=== PATIENT | male | born 1995 | race Two or more races ===

== ENCOUNTER 2017-02-20 11:31 | Emergency (ER) | payer OTHER ==
[2017-02-20] MEDS: PENICILLIN V POTASSIUM 500 MG TAB PO (11:59)
[2017-02-20] MEDS: PERCOCET 5MG/325MG TAB PO (11:59)
== END 2017-02-20 12:28 | disposition home or self-care (01) ==
LOC: M ED 11:31
DX: K04.7 Periapical abscess without sinus (principal); Z98.818 Other dental procedure status; F17.210 Nicotine dependence, cigarettes, uncomplicated
CPT/HCPCS: 99282

== ENCOUNTER 2017-11-10 16:21 | Emergency (ER) | payer OTHER ==
[2017-11-10] MEDS: KETOROLAC TROMETHAMINE 10 MG TAB PO (18:35)
[2017-11-10] MEDS: diphenhydrAMINE 50 MG CAP PO (18:35)
[2017-11-10] MEDS: METOCLOPRAMIDE 10 MG TAB PO (18:35)
[2017-11-10 18:55] LABS: BASO % 0.3 % (0.0-1.0); EOS % 0.3 % (0.0-3.0); HEMATOCRIT 47.1 % (42.0-52.0); IMMATURE GRANULOCYTE % 0.3 % (0-3.0); LYMPH # 2.2 10^3/uL (1.5-6.5); LYMPH % 17.6 % (24.0-44.0); MEAN CORPUSCULAR HEMOGLOBIN 30.2 pg (27.0-33.0); MEAN CORPUSCULAR HGB CONC 36.1 g/dl (32.0-36.5); MEAN CORPUSCULAR VOLUME 83.8 fl (80.0-96.0); MONO # 0.7 10^3/uL (0.0-0.8); MONO % 5.3 % (0.0-5.0); NEUTROPHILS # 9.7 10^3/uL (1.8-7.7); NEUTROPHILS % 76.2 % (36.0-66.0); PLATELET COUNT, AUTOMATED 231 10^3/uL (150-450); RED BLOOD COUNT 5.62 10^6/uL (4.30-6.10); RED CELL DISTRIBUTION WIDTH 11.5 % (11.5-14.5); WHITE BLOOD COUNT 12.7 10^3/uL (4.0-10.0)
[2017-11-10 19:39] LABS: ANION GAP 8 MEQ/L (8-16); BLOOD UREA NITROGEN 19 MG/DL (7-18); CALCIUM LEVEL 9.6 MG/DL (8.5-10.1); CARBON DIOXIDE LEVEL 25 MEQ/L (21-32); CHLORIDE LEVEL 104 MEQ/L (98-107); CREATININE FOR GFR 1.02 MG/DL (0.70-1.30); GLOMERULAR FILTRATION RATE > 60.0 (>60); GLUCOSE, FASTING 89 MG/DL (70-100); MAGNESIUM LEVEL 2.1 MG/DL (1.8-2.4); POTASSIUM SERUM 4.5 MEQ/L (3.5-5.1); SODIUM LEVEL 137 MEQ/L (136-145); THYROID STIMULATING HORMONE 0.676 uIU/ML (0.358-3.740)
[2017-11-15 12:53] LABS: BEDSIDE GLUCOSE 93 MG/DL (70-105)
== END 2017-11-10 20:45 | disposition home or self-care (01) ==
LOC: M ED 16:21
DX: F41.0 Panic disorder [episodic paroxysmal anxiety] (principal); R51 Headache; R00.0 Tachycardia, unspecified; F17.200 Nicotine dependence, unspecified, uncomplicated
CPT/HCPCS: 70450

== ENCOUNTER 2018-05-01 19:31 | Emergency (ER) | payer OTHER ==
[~2018-05-01] VITALS: Ht 180.3 cm; Wt 90.9 kg
[~2018-05-01 19:31] MED LIST: IBUP-1114 PO; NAPR-50 PO; PENI500T OR; PERC5TAB12 PO; REGL10TA6 PO
[2018-05-01] MEDS ORDERED: OLOP0.1D (19:36)
[2018-05-01] MEDS ORDERED: FLUTISP (19:36)
[2018-05-01] MEDS ORDERED: KETOROLAC 30 MG/ML VIAL (J1885) IV ONE (20:30)
[2018-05-01] MEDS ORDERED: ONDANSETRON 4MG/2ML VIAL (J2405) IV ONE (20:30)
[2018-05-01 20:50] LABS: BASO % 0.3 % (0.0-1.0); EOS # 0.1 10^3/uL (0.0-0.50); EOS % 0.9 % (0.0-3.0); HEMATOCRIT 42.5 % (42.0-52.0); HEMOGLOBIN 15.1 g/dl (13.5-17.5); LYMPH # 1.6 10^3/uL (1.5-6.5); LYMPH % 16.5 % (24.0-44.0); MEAN CORPUSCULAR HEMOGLOBIN 29.9 pg (27.0-33.0); MEAN CORPUSCULAR HGB CONC 35.5 g/dl (32.0-36.5); MEAN CORPUSCULAR VOLUME 84.2 fl (80.0-96.0); MONO # 0.7 10^3/uL (0.0-0.8); MONO % 7.1 % (0.0-5.0); NEUTROPHILS # 7.1 10^3/uL (1.8-7.7); NEUTROPHILS % 74.8 % (36.0-66.0); PLATELET COUNT, AUTOMATED 211 10^3/uL (150-450); RED BLOOD COUNT 5.05 10^6/uL (4.30-6.10); WHITE BLOOD COUNT 9.5 10^3/uL (4.0-10.0)
[2018-05-01 21:21] LABS: ALT/SGPT 61 U/L (12-78); BILIRUBIN,DIRECT 0.2 MG/DL (0.0-0.2); BILIRUBIN,TOTAL 1.1 MG/DL (0.2-1.0); BLOOD UREA NITROGEN 11 MG/DL (7-18); CALCIUM LEVEL 8.9 MG/DL (8.5-10.1); CARBON DIOXIDE LEVEL 27 MEQ/L (21-32); CHLORIDE LEVEL 105 MEQ/L (98-107); CREATININE FOR GFR 0.94 MG/DL (0.70-1.30); GLOMERULAR FILTRATION RATE > 60.0 (>60); GLUCOSE, FASTING 103 MG/DL (70-100); LIPASE 81 U/L (73-393); POTASSIUM SERUM 3.5 MEQ/L (3.5-5.1); SODIUM LEVEL 139 MEQ/L (136-145); TOTAL PROTEIN 7.2 GM/DL (6.4-8.2)
--- NOTE | 2018-05-01 21:29 | REPVR ---
EXAM: US Abdomen Limited, Right Upper Quadrant EXAM DATE/TIME: 05/01/2018 9:09 PM CLINICAL HISTORY: 22 years old, male; Pain; Abdominal pain; Generalized; Additional info: Ruq pain TECHNIQUE: Real-time ultrasound of the abdomen with image documentation. Examination was focused on the right upper quadrant. COMPARISON: No relevant prior studies available. FINDINGS: Liver: Normal-appearing liver. Gallbladder: The gallbladder is partially contracted. The gallbladder wall continues to measure approximately 2 mm. I did not detect significant fluid along the margins of the gallbladder. There is no evidence of gallstones. Common bile duct: The common bile duct is normal in size measuring 3 mm. Pancreas: The pancreas is obscured by bowel gas and cannot be evaluated. Right kidney: The right kidney measures 10.4 CM in length with no evidence of hydronephrosis. IMPRESSION: 1. No evidence of gallstones. 2. The gallbladder is partially contracted and a followup could be performed when the patient is fasting if clinically indicated. Electronically signed by: Chris Joyce On 05/01/2018 21:28:57 PM
[2018-05-01] MEDS ORDERED: ISOVUE-370 76% 125ML VIAL (Q9967 PER ML) As Ordered ONE (21:49)
--- NOTE | 2018-05-01 22:42 | REPVR ---
EXAM: CT Abdomen and Pelvis With Contrast EXAM DATE/TIME: 05/01/2018 10:01 PM CLINICAL HISTORY: 22 years old, male; Pain; Abdominal pain; Additional info: Ruq pain TECHNIQUE: Axial computed tomography images of the abdomen and pelvis with intravenous contrast. All CT scans at this facility use at least one of these dose optimization techniques: automated exposure control; mA and/or kV adjustment per patient size (includes targeted exams where dose is matched to clinical indication); or iterative reconstruction. Coronal and sagittal reformatted images were created and reviewed. CONTRAST: Contrast Material: 100 ml of ISO 370; Contrast Route: IV COMPARISON: GALLBLADDER US 05/01/2018 8:54 PM FINDINGS: Lower thorax: Clear appearing lung bases. The heart is normal in size. ABDOMEN: Liver: There is uniform enhancement through the liver. Gallbladder and bile ducts: The gallbladder is contracted. Normal common bile duct. Pancreas: Normal pancreas. Spleen: Normal spleen. Adrenals: Normal adrenal glands. Kidneys and ureters: There is enhancement of the right and the left kidney. There is no evidence of hydronephrosis. Stomach and bowel: The stomach is filled with food material. Appendix: There is no evidence of inflammation in the region of the cecum or appendix. PELVIS: Bladder: Normal urinary bladder. Reproductive: Normal prostate. ABDOMEN and PELVIS: Intraperitoneal space: There is no evidence of pneumoperitoneum. There is no evidence of free fluid in the abdomen or pelvis. Bones/joints: There is no evidence of bony abnormality. Soft tissues: Unremarkable. Vasculature: There is opacification of the SMV and SMA. There is opacification of the aorta which appears normal in size. Lymph nodes: There are several small lymph nodes on the posterior aspect of the right colon. IMPRESSION: 1. The gallbladder is contracted. 2. There is no evidence of biliary dilatation. 3. The stomach is filled with food and secretions. 4. Small lymph nodes noted posterior to the right colon. Electronically signed by: Chris Joyce On 05/01/2018 22:42:17 PM
[2018-05-01 23:55] VITALS: BP 134/81
== END 2018-05-01 23:57 | disposition home or self-care (01) ==
LOC: M ED 19:31
DX: K80.20 Calculus of gallbladder without cholecystitis without obstruction (principal); F17.210 Nicotine dependence, cigarettes, uncomplicated
CPT/HCPCS: 74177; 76705; 80048; 80076; 83690; 85025; 96374; 96375; 99284; J1885; J2405; Q9967

== ENCOUNTER 2018-05-03 11:48 | Emergency (ER) | payer OTHER ==
[~2018-05-03] VITALS: Ht 180.3 cm; Wt 90.9 kg
[~2018-05-03 11:48] MED LIST changes: +FLUTISP; +OLOP0.1D
[2018-05-03] MEDS ORDERED: ONDANSETRON 4 MG ORAL DISINTEGRATING TAB (Q0162 PER 1MG) PO ONE (13:00)
[2018-05-03 13:26] LABS: BASO % 0.5 % (0.0-1.0); EOS # 0.1 10^3/uL (0.0-0.50); EOS % 0.8 % (0.0-3.0); HEMATOCRIT 41.2 % (42.0-52.0); HEMOGLOBIN 14.7 g/dl (13.5-17.5); LYMPH # 1.9 10^3/uL (1.5-6.5); LYMPH % 22.1 % (24.0-44.0); MEAN CORPUSCULAR HEMOGLOBIN 30.3 pg (27.0-33.0); MEAN CORPUSCULAR HGB CONC 35.7 g/dl (32.0-36.5); MEAN CORPUSCULAR VOLUME 84.9 fl (80.0-96.0); MONO # 0.6 10^3/uL (0.0-0.8); MONO % 6.7 % (0.0-5.0); NEUTROPHILS # 6.1 10^3/uL (1.8-7.7); NEUTROPHILS % 69.6 % (36.0-66.0); PLATELET COUNT, AUTOMATED 205 10^3/uL (150-450); RED BLOOD COUNT 4.85 10^6/uL (4.30-6.10); WHITE BLOOD COUNT 8.7 10^3/uL (4.0-10.0)
[2018-05-03 13:51] LABS: ALT/SGPT 50 U/L (12-78); BILIRUBIN,DIRECT 0.2 MG/DL (0.0-0.2); BILIRUBIN,TOTAL 0.9 MG/DL (0.2-1.0); BLOOD UREA NITROGEN 8 MG/DL (7-18); CALCIUM LEVEL 8.6 MG/DL (8.5-10.1); CARBON DIOXIDE LEVEL 27 MEQ/L (21-32); CHLORIDE LEVEL 108 MEQ/L (98-107); CREATININE FOR GFR 0.88 MG/DL (0.70-1.30); GLOMERULAR FILTRATION RATE > 60.0 (>60); GLUCOSE, FASTING 102 MG/DL (70-100); POTASSIUM SERUM 3.9 MEQ/L (3.5-5.1); SODIUM LEVEL 140 MEQ/L (136-145); TOTAL PROTEIN 7.1 GM/DL (6.4-8.2)
--- NOTE | 2018-05-03 14:22 | REP ---
Right upper quadrant sonography: History: Right upper quadrant pain and nausea. Comparison study: Comparison CT study May 01, 2018. Findings: Scanning through the right upper quadrant of the abdomen demonstrates a normal sized, thin-walled gallbladder without evidence of stone or polyp. Common bile duct is normal measuring 0.4 cm in greatest diameter. No focal liver lesion is seen. Liver size is normal. No pancreatic abnormality is observed. The pancreas is partially obscured by bowel gas. No right renal abnormality is seen. There is no evidence of ascites. The right kidney measures 11.2 x 6.9 x 4.7 cm. Impression: Negative right upper quadrant sonography. Electronically Signed by Herbert Obrien MD 05/03/2018 02:13 P
--- NOTE | 2018-05-03 14:27 | REP ---
Scrotal sonography: History: Bilateral testicular swelling. Findings: There is no evidence of intratesticular mass lesion. There is mild pattern of bilateral testicular microlithiasis, left a little more numerous than right. Testicular Doppler flow is normal bilaterally. Resistive indices by Doppler are 0.56 on the right and 0.64 on the left. Right testis measures 4.5 x 2.8 x 2.7 cm. Left testicular dimensions are 4.8 x 2.4 x 2.9 cm. No hydrocele is seen. There is a small calcification at the edge of the left epididymal head. Impression: No acute scrotal abnormality. Mild bilateral testicular microlithiasis. No mass lesion seen. Normal Doppler flow. Electronically Signed by Herbert Obrien MD 05/03/2018 07:50 P
[2018-05-03] MEDS ORDERED: LIDOCAINE 1% SDV 5 ML VIAL DILUENT ONE (14:30)
[2018-05-03] MEDS ORDERED: cefTRIAXone SOD 250 MG VIAL (J0696) IM ONE (14:30)
[2018-05-03] MEDS ORDERED: AZITHROMYCIN 250 MG TAB PO ONE (14:30)
[2018-05-03] MEDS ORDERED: ONDA4TAB6 PO (14:42)
[2018-05-03 14:55] VITALS: BP 136/75
[2018-05-03 14:57] LABS: CHLAMYDIA DNA AMPLIFICATION NEGATIVE (NEGATIVE); GC DNA AMPLIFICATION NEGATIVE (NEGATIVE)
== END 2018-05-03 15:00 | disposition home or self-care (01) ==
LOC: M ED 11:48
DX: N50.89 Other specified disorders of the male genital organs (principal); K80.50 Calculus of bile duct without cholangitis or cholecystitis without obstruction; Z20.2 Contact with and (suspected) exposure to infections with a predominantly sexual mode of transmission; R11.0 Nausea; F17.210 Nicotine dependence, cigarettes, uncomplicated; Z79.899 Other long term (current) drug therapy
CPT/HCPCS: 76705; 76870; 80048; 80076; 81001; 85025; 87491; 87591; 93976; 96372; 99283; J0696; Q0162

== ENCOUNTER → 2018-06-15 | Outpatient (REF) | payer OTHER ==
[~2018-06-15] MED LIST changes: -NAPR-50 PO; +NAPR-837 PO; +ONDA4TAB6 PO
[2018-06-15 20:16] LABS: SEMEN APPEARANCE OPAQUE (OPAQUE); SEMEN VISCOSITY LIQUID (LIQUID); SEMEN VOLUME 3.5 ml (4.0-5.0); SPERM CONCENTRATION 26.1 M/ml (>=15.0); WBC CONCENTRATION >1 M/ml (<=1 M/ml)
== END ==
LOC: M LAB REF 17:33
PROVIDERS: ATTEND Physician Assistant
DX: Z31.41 Encounter for fertility testing (principal)

== ENCOUNTER 2018-07-19 12:15 | Emergency (ER) | payer OTHER ==
[~2018-07-19] VITALS: Ht 180.3 cm; Wt 107.8 kg
[2018-07-19] MEDS ORDERED: ACETAMINOPHEN 325 MG TAB PO ONE (13:30)
[2018-07-19] MEDS ORDERED: ACET-683 PO (13:31)
[2018-07-19] MEDS ORDERED: IBUPROFEN 600 MG TAB PO ONE (13:45)
[2018-07-19 14:18] LABS: INFLUENZA A AMPLIFICATION NEGATIVE (NEGATIVE); INFLUENZA B AMPLIFICATION NEGATIVE (NEGATIVE)
[2018-07-19] MEDS ORDERED: ZOFR4TAB16 PO (14:41)
[2018-07-19 14:42] VITALS: BP 146/60
== END 2018-07-19 14:48 | disposition home or self-care (01) ==
LOC: M ED 12:15
DX: J06.9 Acute upper respiratory infection, unspecified (principal)

== ENCOUNTER 2019-07-24 09:03 | Emergency (ER) | payer OTHER ==
[~2019-07-24] VITALS: Ht 180.3 cm; Wt 111.6 kg
[~2019-07-24 09:03] MED LIST changes: +ACET-683 PO; +ZOFR4TAB16 PO
[2019-07-24] MEDS ORDERED: VOLT1GEL15 (09:10)
[2019-07-24] MEDS ORDERED: CAPS0.022 (09:10)
[2019-07-24] MEDS ORDERED: TERB250T12 (09:10)
[2019-07-24] MEDS ORDERED: NS 1,000 ML IV ONE (09:30)
[2019-07-24 10:04] LABS: BASO % 0.4 % (0.0-1.0); EOS # 0.1 10^3/uL (0.0-0.5); EOS % 1.8 % (0.0-3.0); HEMATOCRIT 42.8 % (42.0-52.0); HEMOGLOBIN 14.7 g/dl (13.5-17.5); LYMPH # 1.8 10^3/uL (1.5-5.0); LYMPH % 23.7 % (24.0-44.0); MEAN CORPUSCULAR HEMOGLOBIN 29.7 pg (27.0-33.0); MEAN CORPUSCULAR HGB CONC 34.3 g/dl (32.0-36.5); MEAN CORPUSCULAR VOLUME 86.5 fl (80.0-96.0); MONO # 0.5 10^3/uL (0.0-0.8); MONO % 6.7 % (0.0-5.0); NEUTROPHILS # 5.2 10^3/uL (1.5-8.5); PLATELET COUNT, AUTOMATED 225 10^3/uL (150-450); RED BLOOD COUNT 4.95 10^6/uL (4.30-6.10); WHITE BLOOD COUNT 7.8 10^3/uL (4.0-10.0)
[2019-07-24] MEDS ORDERED: KETOROLAC 30 MG/ML 1ML VIAL IV ONE (10:15)
[2019-07-24] MEDS ORDERED: ISOVUE-370 76% 100ML VIAL As Ordered ONE (10:23)
[2019-07-24 10:34] LABS: BILIRUBIN,DIRECT 0.2 MG/DL (0.0-0.2); BILIRUBIN,TOTAL 0.8 MG/DL (0.2-1.0); TOTAL PROTEIN 7.4 GM/DL (6.4-8.2)
[2019-07-24] MEDS ORDERED: MORPHINE 4 MG/ML 1ML VIAL/SYRINGE (J2270) IV ONE (11:00)
[2019-07-24] MEDS ORDERED: ONDANSETRON 4MG/2ML VIAL IV ONE (11:00)
[2019-07-24] MEDS ORDERED: ONDA4TAB6 PO (11:51)
[2019-07-24] MEDS ORDERED: IBUP80TA PO (11:51)
[2019-07-24 11:57] VITALS: BP 134/73
--- NOTE | 2019-07-24 14:05 | REP ---
CT ABDOMEN AND PELVIS WITH IV CONTRAST: TECHNIQUE: Axial contrast-enhanced images from the lung bases to the pubic symphysis using 100 mL Isovue-370 intravenous contrast material with multiplanar reformations. Visualized lung bases are clear. The liver, spleen, adrenals, pancreas, and kidneys are normal in appearance. There is no abdominal aortic aneurysm. There are multiple subcentimeter lymph nodes scattered throughout the mesentery with a cluster in the right lower quadrant. Findings may indicate mesenteric adenitis. There is no appendicitis, a normal appendix is visualized. No bowel wall thickening is seen. No pelvic mass is seen. Urinary bladder is grossly unremarkable. There is a small right inguinal hernia containing noninflamed fat. IMPRESSION: No evidence of appendicitis. Multiple scattered subcentimeter lymph nodes throughout the mesentery with a cluster in the right lower quadrant. Findings may represent mesenteric adenitis. Small right inguinal hernia contains noninflamed fat. Electronically Signed by Ramón Massey MD 07/24/2019 10:58 P
== END 2019-07-24 12:04 | disposition home or self-care (01) ==
LOC: M ED 09:03
DX: I88.0 Nonspecific mesenteric lymphadenitis (principal); K40.90 Unilateral inguinal hernia, without obstruction or gangrene, not specified as recurrent; R10.9 Unspecified abdominal pain; Z79.899 Other long term (current) drug therapy
CPT/HCPCS: 74177; 80047; 80076; 81001; 83605; 83690; 85025; 87040; 96361; 96374; 96375; 99284; J1885; J2270; J2405; Q9967

== ENCOUNTER 2019-10-27 10:29 | Day surgery (SDC) | payer OTHER ==
[~2019-10-27] VITALS: Ht 180.3 cm; Wt 104.5 kg
[~2019-10-27 10:29] MED LIST changes: +CAPS0.022 TOP; +IBUP80TA PO; +TERB250T12; +VOLT1GEL15 TOP
[2019-10-27] MEDS ORDERED: MORPHINE 4 MG/ML 1ML VIAL/SYRINGE (J2270) IV PRN ×3 (12:00→23:15)
--- NOTE | 2019-10-27 12:38 | REPVR ---
PROCEDURE INFORMATION: Exam: XR Right Ankle Exam date and time: 10/27/2019 12:22 PM Age: 24 years old Clinical indication: Injury or trauma; Fall; Initial encounter; Fracture, traumatic; Closed fracture; Ankle; Right; Not specified; Additional info: Post red TECHNIQUE: Imaging protocol: XR Right ankle. Views: 3 or more views. COMPARISON: CR ANKLE COMPLETE RT OUTSIDE PRIOR 10/27/2019 7:54 AM FINDINGS: Limitations: Examination is slightly limited by overlying cast material. Bones/joints: Improved alignment of the ankle mortise. Residual moderate widening of the medial ankle joint space, improved since prior. Widening of the distal tibiofibular joint, slightly improved since prior. Avulsion fracture of the tip of the medial malleolus. 11 mm of residual displacement. Fracture of the posterior malleolus, with improved alignment. Approximately 6 mm of residual impaction. Oblique fracture of the distal fibular metaphysis, with improved alignment. Approximately 5 mm of residual displacement. Approximately 4 mm of residual impaction. Soft tissues: Normal. IMPRESSION: Interval improvement in alignment of the trimalleolar fracture and the ankle mortise. Electronically signed by: Carolina Call On 10/27/2019 12:37:52 PM
[2019-10-27] MEDS ORDERED: MULT-90 PO (13:31)
[2019-10-27] MEDS ORDERED: BUPIVACAINE HCL 0.5% 30 ML VIAL As Ordered ONE (17:44)
[2019-10-27] MEDS ORDERED: ceFAZolin 1GM VIAL (J0690 PER 500MG) As Ordered ONE ×2 (17:53→19:00)
[2019-10-27] MEDS ORDERED: fentaNYL 100 MCG/2 ML INJECTION (J3010) As Ordered ONE ×4 (18:02→20:22)
[2019-10-27] MEDS ORDERED: MIDAZOLAM INJ 2MG/2ML VIAL (J2250 PER 1MG) As Ordered ONE ×2 (18:02→18:42)
[2019-10-27] MEDS: fentaNYL 100 MCG/2 ML INJECTION (J3010) IV PRN ×2 (18:16→18:23)
[2019-10-27] MEDS: MIDAZOLAM INJ 2MG/2ML VIAL (J2250 PER 1MG) IV PRN ×2 (18:17→18:19)
[2019-10-27] MEDS ORDERED: LIDOCAINE 2% 100MG/5ML SDV (FOR ANES.) As Ordered ONE (18:42)
[2019-10-27] MEDS ORDERED: propofoL 200 MG/20 ML VIAL As Ordered ONE ×2 (18:42→20:47)
[2019-10-27] MEDS ORDERED: dexameTHASONE 4 MG/ML 1ML VIAL (J1100 PER 1MG) As Ordered ONE (19:12)
[2019-10-27] MEDS ORDERED: ONDANSETRON 4MG/2ML VIAL As Ordered ONE (19:26)
[2019-10-27] MEDS ORDERED: ONDANSETRON 4MG/2ML VIAL IV PRN ×3 (21:30→23:15)
[2019-10-27] MEDS ORDERED: fentaNYL 100 MCG/2 ML INJECTION (J3010) IV PRN (21:30)
[2019-10-27] MEDS ORDERED: oxyCODONE 5MG TAB PO PRN (21:30)
[2019-10-27] MEDS ORDERED: LR 1,000 ML IV SCH ×2 (21:30→23:15)
[2019-10-27 22:15] VITALS: BP 159/84
[2019-10-27 22:45] VITALS: BP 152/85
[2019-10-27] MEDS ORDERED: PERCOCET 5MG/325MG TAB PO PRN ×3 (23:00→23:15)
[2019-10-27 23:45] VITALS: BP 135/83
[2019-10-28 00:45] VITALS: BP 142/88
[2019-10-28] MEDS ORDERED: ceFAZolin SOD 2 GM in IV 1 EA IV SCH (01:00)
[2019-10-28] MEDS: ceFAZolin SOD 2 GM in IV 1 EA IV SCH ×2 (01:03→06:21)
[2019-10-28] MEDS: PERCOCET 5MG/325MG TAB PO PRN ×3 (01:04→10:26)
[2019-10-28 02:00] VITALS: BP 144/80
[2019-10-28 06:00] VITALS: BP 165/76
[2019-10-28] MEDS ORDERED: PERC5TAB12 PO (06:14)
[2019-10-28] MEDS ORDERED: ECOT81TA5 PO (06:14)
[2019-10-28] MEDS ORDERED: ASPIRIN 81 MG ENTERIC TAB PO SCH (09:00)
[2019-10-28] MEDS ORDERED: ASPIRIN 81 MG CHEW TABLET PO SCH (09:00)
--- NOTE | 2019-11-13 11:49 | RO ---
DATE OF OPERATION: 10/27/2019 PREOPERATIVE DIAGNOSIS: Right ankle fracture dislocation. POSTOPERATIVE DIAGNOSIS: Right ankle fracture dislocation. PROCEDURE: 1. Right ankle open reduction, internal fixation. 2. Right close reduction, internal fixation of the syndesmosis. SURGEON: Chinmay Ontiveros MD ASSISTANTS: Two scrub technicians ANESTHESIA: General, preoperative nerve block IV FLUIDS: Lactated Ringers. ESTIMATED BLOOD LOSS: 50 ml. IMPLANTS: Synthes 7 hole, 1/3 tubular non-locking plate with 4.0 cancellous screws x 2, 3.5 mm cortical screws x 4 and a 3.5 mm syndesmotic screw x 1. CLOSURE: Nylon. PROCEDURE: The patient identified in the preoperative holding area. The right ankle was marked. He had sustained a right ankle fracture dislocation. Provisional close reduction at [place] and attempted repeat reduction by the emergency room team at [facility] revealed persistent widening. He had a very small posterior medial malleolus fracture. Given the unstable nature of this injury, this required surgery. We had a conversation about the risks and benefits of open reduction, internal fixation with possible syndesmotic fixation, written informed consent obtained. The patient had a preoperative nerve block and was brought to the operating room, placed spine on a radiolucent fracture table. General anesthesia induced. Splint was removed. There were no open wounds. A pre-scrub with chlorhexidine was performed. Well padded tourniquet applied to the right side. Large bump placed under the right hip. He had an SCD on the left lower extremity for deep venous thrombosis (DVT) prophylaxis. The right leg was then prepped and draped in the normal sterile fashion with ChloraPrep from the toes up to the tourniquet. He received appropriate IV antibiotics within one hour of incision. Prior to incision time-out was performed per hospital protocol. The right leg was exsanguinated and Esmarch bandage, tourniquet inflated to 275 mmHg. A longitudinal incision was made with the 15 blade over the posterior aspect of the distal fibula. Dissection through subcutaneous tissues with Metzenbaum scissors. Dissection was carried down to the fibular fracture. Several small veins were identified and cauterized. The superficial peroneal nerve was not encountered during the case. A fresh #15 blade was used to sharply incised periosteum out of the fracture site. There was a butterfly fracture fragment at the syndesmosis. This was seen on preoperative x-rays and this was blocking the reduction. The fracture was maximally gapped and then the fragment was removed and sent to pathology. The fracture site was irrigated. With traction and a Pointed Reduction forceps, I obtained a provisional open reduction. The fibular fracture site was perfectly lined up. A K-wire was then used to provisionally hold the reduction. X-rays, AP, mortise and lateral views were obtained with a large C-arm and there was an anatomic reduction. I then drilled using lag technique and placed the 3.5 cortical lag screw by over drilling the near cortex. This had fantastic fixation at 20 mm in length and nicely secured the fracture. The Pointed Reduction forceps was removed. Then selected a 7 hole 1/3 tubular Synthes plate and this was bent to accommodate the metadiaphyseal flare of the fibula and then it was contoured back at the very tip to minimize prominence distally. 3.5 cortical screw was first placed just proximal to the fracture site and then a 4-0 cancellous screw placed distally. AP, lateral, mortise views obtained showing an anatomically reduced fracture, well positioned hardware. I then placed a total of two 4.0 cancellous screws distal to the fracture. I placed three 3.5 mm cortical screws proximal to the fracture. AP, lateral, mortise views obtained. I then performed an external rotation stress test under fluoroscopy and there was some slight widening in the medial clear space. It is also evident that there was a very small evulsion fracture at the tip of the medial malleolus, which may have some of the superficial deltoid attached and on the lateral view, the joint was congruent and there was a well-reduced small posterior malleolar fracture. I felt that the patient would be best served with a syndesmotic screw. The syndesmosis was then held reduced manually and I drilled and placed a 3.5 mm fully threaded cortical screw with the ankle in neutral dorsiflexion. I took care not to over tighten the syndesmosis. Final AP, mortise and lateral views showed anatomic fracture reduction, fibula was out to length and a bicortical fixation. Incision was then irrigated and closed. I then extensively irrigated the incision and a final tightening the screws. A 2-0 Vicryl suture was then used to close periosteum over the plate followed by 2-0 subcuticular and a running 3-0 nylon was then used to close the skin. The tourniquet was let down with excellent re- perfusion. Injected 5 cc 0.5% Marcaine without epinephrine. Bulky sterile dressing then placed. Placed into a well-padded splint. He was extubated, transferred to PACU in stable condition. JESSICA
--- NOTE | 2019-11-17 07:39 | REP ---
FLUOROSCOPIC GUIDANCE STUDY: CLINICAL: Fixation for right ankle fracture. TECHNIQUE: Intraoperative fluoroscopic imaging using portable C-arm technique. FINDINGS: Multiple images demonstrate the patient to be status post fixation with stabilizing plate and screws through the distal fibula. Small medial malleolus avulsion fracture as well as nondisplaced posterior malleolar fractures are also appreciated. Total fluoroscopic time: 1 minute 26 seconds. IMPRESSION: Satisfactory open reduction and fixation. JESSICA
--- NOTE | 2019-11-17 07:40 | REP ---
RIGHT ANKLE X-RAY: CLINICAL: Postoperative assessment. TECHNIQUE: AP, lateral, bilateral oblique views of the right ankle. FINDINGS: The patient is noted to be status post open reduction and fixation with stabilizing plate and screws overlying the distal fibula. Satisfactory reduction noted at the ankle joint. The lateral view demonstrates small posterior malleolar fracture in satisfactory position. Anterior view suggests small medial malleolar fracture fragments (acute versus chronic). The ankle mortise appears intact. IMPRESSION: Status post open reduction and fixation. JESSICA
== END 2019-10-28 11:10 | disposition home or self-care (01) ==
LOC: M ED 10:29 → EDBD 10:29 → M SDC 16:50 → M MS5PR 22:15 → M SDC 10-28 11:10
PROVIDERS: ATTEND Orthopaedic Surgery
DX: S82.851A Displaced trimalleolar fracture of right lower leg, initial encounter for closed fracture (principal); W19.XXXA Unspecified fall, initial encounter; Y93.61 Activity, american tackle football; Y92.321 Football field as the place of occurrence of the external cause; Y99.9 Unspecified external cause status; Z91.81 History of falling
CPT/HCPCS: 27822; 27829; 64445; 73610; 76000; 88300; 96365; 96375; 96376; 97116; 99284; C1713; J0690; J1100; J2250; J2270; J2405; J3010; U0002